=== PATIENT | female | born 1980 | race Caucasian/White ===

== ENCOUNTER 2017-11-04 10:45 | Outpatient (CLI) | payer OTHER ==
[2017-11-05] MEDS ORDERED: PRENATAL TABLE1 EACH PO ×2 (12:08→12:09)
== END 2017-11-04 12:51 | disposition home or self-care (01) ==
LOC: NST 10:45
DX: Z34.83 Encounter for supervision of other normal pregnancy, third trimester (principal)

== ENCOUNTER 2017-11-05 08:50 | Outpatient (CLI) | payer OTHER ==
[2017-11-05] MEDS ORDERED: PRENATAL TABLE1 EACH PO ×2 (12:08→12:09)
== END 2017-11-05 09:31 | disposition still patient (30) ==
LOC: NST 08:50
DX: Z34.83 Encounter for supervision of other normal pregnancy, third trimester (principal)

== ENCOUNTER 2017-11-05 09:32 | Inpatient (IN) | payer OTHER ==
[~2017-11-05] VITALS: Ht 162.6 cm; Wt 67.6 kg
[2017-11-05] MEDS ORDERED: PRENATAL TABLE1 EACH PO ×2 (12:08→12:09)
== END 2017-11-06 09:57 | disposition home or self-care (01) | DRG 782 ==
LOC: LDR 09:32
PROC: 4A1HXCZ Monitoring of Products of Conception, Cardiac Rate, External Approach (ICD-10-PCS; principal; 2017-11-05)
DX: O76 Abnormality in fetal heart rate and rhythm complicating labor and delivery (principal); O36.5930 Maternal care for other known or suspected poor fetal growth, third trimester, not applicable or unspecified

== ENCOUNTER 2017-11-10 07:47 | Outpatient (CLI) | payer OTHER ==
[~2017-11-10 07:47] MED LIST: PRENATAL TABLE1 EACH PO
== END 2017-11-10 13:31 | disposition home or self-care (01) ==
LOC: NST 07:47
DX: O36.5930 Maternal care for other known or suspected poor fetal growth, third trimester, not applicable or unspecified (principal); Z34.83 Encounter for supervision of other normal pregnancy, third trimester

== ENCOUNTER 2017-11-14 07:17 | Outpatient (CLI) | payer OTHER | END 2017-11-14 13:38 | disposition home or self-care (01) | LOC: NST 07:17 | DX: Z34.83 Encounter for supervision of other normal pregnancy, third trimester (principal) ==

== ENCOUNTER 2017-11-17 08:11 | Outpatient (CLI) | payer OTHER | END 2017-11-17 11:07 | disposition home or self-care (01) | LOC: NST 08:11 | DX: Z34.83 Encounter for supervision of other normal pregnancy, third trimester (principal) ==

== ENCOUNTER → 2017-11-19 | Outpatient (CLI) | payer OTHER | END | disposition home or self-care (01) | LOC: NST 02:03 | DX: Z34.83 Encounter for supervision of other normal pregnancy, third trimester (principal) ==

== ENCOUNTER 2017-11-20 08:51 | Outpatient (CLI) | payer OTHER | END 2017-11-20 10:36 | disposition home or self-care (01) | LOC: NST 08:51 | DX: Z34.83 Encounter for supervision of other normal pregnancy, third trimester (principal) ==

== ENCOUNTER 2017-11-22 08:42 | Outpatient (CLI) | payer OTHER | END 2017-11-22 10:33 | disposition home or self-care (01) | LOC: NST 08:42 | DX: Z34.83 Encounter for supervision of other normal pregnancy, third trimester (principal) ==

== ENCOUNTER 2017-11-25 07:34 | Outpatient (CLI) | payer OTHER | END 2017-11-25 09:09 | disposition home or self-care (01) | LOC: NST 07:34 | DX: Z34.83 Encounter for supervision of other normal pregnancy, third trimester (principal) ==

== ENCOUNTER 2017-11-28 07:45 | Outpatient (CLI) | payer OTHER | END 2017-11-28 09:06 | disposition home or self-care (01) | LOC: NST 07:45 | DX: Z34.83 Encounter for supervision of other normal pregnancy, third trimester (principal) ==

== ENCOUNTER 2017-12-01 08:33 | Outpatient (CLI) | payer OTHER | END 2017-12-01 09:32 | disposition home or self-care (01) | LOC: NST 08:33 | DX: Z34.83 Encounter for supervision of other normal pregnancy, third trimester (principal) ==

== ENCOUNTER 2017-12-02 12:15 | Inpatient (IN) | payer OTHER ==
[~2017-12-02] VITALS: Ht 162.6 cm; Wt 1.8 kg
== END 2017-12-08 16:10 | disposition home or self-care (01) | DRG 775 ==
LOC: LDR 12-06 06:26 → SURG-SUITE 12-06 14:32 → LDR 12-07 12:11 → SURG-SUITE 12-08 16:10
PROC: 10E0XZZ Delivery of Products of Conception, External Approach (ICD-10-PCS; principal; 2017-12-06)
PROC: 0KQM0ZZ Repair Perineum Muscle, Open Approach (ICD-10-PCS; 2017-12-06)
PROC: 4A1HXCZ Monitoring of Products of Conception, Cardiac Rate, External Approach (ICD-10-PCS; 2017-12-06)
PROC: 4A033R1 Measurement of Arterial Saturation, Peripheral, Percutaneous Approach (ICD-10-PCS; 2017-12-06)
PROC: 0W8NXZZ Division of Female Perineum, External Approach (ICD-10-PCS; 2017-12-06)
PROC: 3E033VJ Introduction of Other Hormone into Peripheral Vein, Percutaneous Approach (ICD-10-PCS; 2017-12-06)
DX: O70.1 Second degree perineal laceration during delivery (principal); Z37.0 Single live birth; O60.14X0 Preterm labor third trimester with preterm delivery third trimester, not applicable or unspecified; O36.5930 Maternal care for other known or suspected poor fetal growth, third trimester, not applicable or unspecified; Z3A.36 36 weeks gestation of pregnancy

== ENCOUNTER 2017-12-03 07:48 | Outpatient (CLI) | payer OTHER | END 2017-12-03 10:07 | disposition home or self-care (01) | LOC: NST 07:48 | DX: Z34.83 Encounter for supervision of other normal pregnancy, third trimester (principal) ==

== ENCOUNTER 2017-12-05 06:22 | Outpatient (CLI) | payer OTHER | END 2017-12-05 07:34 | disposition home or self-care (01) | LOC: NST 06:22 | DX: Z34.83 Encounter for supervision of other normal pregnancy, third trimester (principal) ==